=== PATIENT | male | born 1985 | race Caucasian/White ===

== ENCOUNTER 2018-11-25 19:00 | Emergency (ER) | payer MEDICAID ==
[~2018-11-25] VITALS: Ht 188 cm; Wt 80.7 kg
--- NOTE | 2018-11-25 21:39 | NUR ---
Dr. Hansen at bedside for MSE.
[2018-11-25] MEDS ORDERED: DEXAMETHASONE SOD PHOSPHATE 4 MG INJ IV ONE (21:45)
[2018-11-25] MEDS ORDERED: KETOROLAC TROMETHAMINE 15 MG INJ IVP ONE ×2 (21:45)
[2018-11-25] MEDS ORDERED: IV NORMAL SALINE 1000 ML BAG IV ONE (21:45)
[2018-11-25] MEDS ORDERED: KETOROLAC TROMETHAMINE 15 MG INJ ONE (22:00)
[2018-11-25] MEDS ORDERED: METOCLOPRAMIDE HCL 10 MG/2 ML VIAL ONE (22:00)
[2018-11-25] MEDS ORDERED: DEXAMETHASONE SOD PHOSPHATE 10 MG INJ ONE (22:00)
[2018-11-25 22:03] LABS: BASOPHILS % (AUTO) 0.4 % (0.0-2.0); EOSINOPHILS # (AUTO) 0.1 K/uL (0.0-0.7); EOSINOPHILS % (AUTO) 2.2 % (0.0-7.0); LYMPHOCYTES # (AUTO) 1.8 K/uL (20.0-40.0); LYMPHOCYTES % (AUTO) 39.8 % (20.5-51.5); MEAN CORPUSCULAR HEMOGLOBIN 29.9 uug (23.8-33.4); MEAN CORPUSCULAR HGB CONC 35 g/dL (32.5-36.3); MEAN CORPUSCULAR VOLUME 85.6 fL (73.0-96.2); MONOCYTES # (AUTO) 0.5 K/uL (2.0-10.0); MONOCYTES % (AUTO) 10.6 % (0.0-11.0); NEUTROPHILS # (AUTO) 2.1 K/uL (1.8-8.9); PLATELET COUNT (AUTO) 148 K/uL (152-348); RED BLOOD CELL COUNT(AUTO) 5.02 MIL/uL (4.06-5.63); WHITE BLOOD COUNT (AUTO) 4.5 K/uL (3.6-10.2)
[2018-11-25 22:09] LABS: CREATININE 0.8 mg/dL (0.6-1.3); POTASSIUM 3.7 mmol/L (3.5-5.1)
--- NOTE | 2018-11-25 22:11 | NUR ---
Xray at bedside.
[2018-11-25 22:15] LABS: BILIRUBIN,DIRECT 0.2 mg/dL (0.0-0.2); BILIRUBIN,TOTAL 0.7 mg/dL (0.2-1.0); TOTAL PROTEIN, SERUM 6.8 g/dL (6.4-8.2)
[2018-11-25] MEDS ORDERED: diphenhydrAMINE 50 MG/1 ML VIAL IV ONE (22:15)
[2018-11-25] MEDS ORDERED: METOCLOPRAMIDE HCL 10 MG/2 ML VIAL IV ONE (22:15)
--- NOTE | 2018-11-25 22:33 | NUR ---
Pt refused CT with contrast MD notified.
[2018-11-25] MEDS ORDERED: SWABABLE VALVE TRANSFER SET EA MC ONE (22:34)
[2018-11-25] MEDS ORDERED: NORMAL SALINE FLUSH 10 ML DISP.SYRIN ONE (22:34)
[2018-11-25] MEDS ORDERED: IOHEXOL 300MG/ML 100 ML INFUS..BTL ONE (22:34)
[2018-11-25] MEDS ORDERED: IV NORMAL SALINE 0 ML IV ONE (22:34)
[2018-11-25] MEDS ORDERED: DOXYCYCLINE HYCLATE 100 MG TABLET PO ONE (22:45)
[2018-11-25] MEDS ORDERED: predniSONE 50 MG TABLET PO ONE (22:45)
--- NOTE | 2018-11-25 23:01 | NUR ---
Pt out of ER for CT.
--- NOTE | 2018-11-25 23:18 | NUR ---
Pt back to ER from CT.
--- NOTE | 2018-11-25 23:58 | NUR ---
Patient discharged to home in stable conditon. Written and verbal after care instructions given. Patient verbalizes understanding of instructions. Patient ambulated out of ER with steady gait, no acute signs of distress, VSS, all belongings taken, IV site discontinued.
[2018-11-25 23:59] VITALS: BP 108/71
== END 2018-11-26 | disposition home or self-care (01) ==
LOC: ER 19:00
DX: S02.2XXA Fracture of nasal bones, initial encounter for closed fracture (principal); R11.2 Nausea with vomiting, unspecified; M54.2 Cervicalgia; Z88.0 Allergy status to penicillin; X58.XXXA Exposure to other specified factors, initial encounter; Y93.89 Activity, other specified; Y92.89 Other specified places as the place of occurrence of the external cause; Y99.8 Other external cause status
CPT/HCPCS: 36415; 70486; 70490; 71045; 74176; 80048; 80076; 83605; 83690; 84484; 85025; 87040 ×2; 96361; 96374; 96375; 99284; J1100; J1885; J2765; 70030-TC; A4663; J3490; J7030; J7040; J7050; Q9967